=== PATIENT | female | born 1980 | race African-American/Black ===

== ENCOUNTER 2017-03-24 08:54 | Emergency (ER) | payer MEDICAID ==
[~2017-03-24] VITALS: Ht 170.2 cm; Wt 59.0 kg
[2017-03-24] MEDS ORDERED: KETOROLAC 60MG/2ML VIAL IM ONE (09:45)
[2017-03-24] MEDS ORDERED: METOCLOPRAMIDE HCL 5MG TABLET PO ONE (09:45)
[2017-03-24] MEDS ORDERED: IBUPROFEN 600MG TABLET PO ONE (10:00)
[2017-03-24 10:08] VITALS: BP 121/62
== END 2017-03-24 10:09 | disposition home or self-care (01) ==
LOC: ER 10:04
DX: R51 Headache (principal); F17.200 Nicotine dependence, unspecified, uncomplicated
CPT/HCPCS: 99283; J1885; J8597

== ENCOUNTER 2018-05-03 18:57 | Emergency (ER) | payer MEDICAID ==
[~2018-05-03] VITALS: Ht 170.2 cm; Wt 68.0 kg
[2018-05-03] MEDS ORDERED: ACETAMINOPHEN 325MG TABLET ONE (20:40)
[2018-05-03] MEDS ORDERED: KETOROLAC 60MG/2ML VIAL IM ONE (23:30)
[2018-05-03] MEDS ORDERED: AMOXICILLIN/POTASSIUM CLAVULANATE 875/125MG TAB PO ONE (23:30)
[2018-05-03] MEDS ORDERED: HYDROCODONE/ACETAMINOPHEN 5/325MG TABLET PO ONE (23:30)
[2018-05-04 00:30] VITALS: BP 119/64
== END 2018-05-04 00:30 | disposition home or self-care (01) ==
LOC: ER 20:32
DX: K04.7 Periapical abscess without sinus (principal); F17.200 Nicotine dependence, unspecified, uncomplicated
CPT/HCPCS: 81025; 96372; 99283; J1885; Z7610

== ENCOUNTER 2020-09-05 12:34 | Emergency (ER) | payer MEDICAID ==
[~2020-09-05] VITALS: Ht 170.2 cm; Wt 54.0 kg
[2020-09-05 12:35] VITALS: BP 107/72
[2020-09-05] MEDS ORDERED: LORAZEPAM 1MG TABLET PO ONE (14:00)
== END 2020-09-05 14:49 | disposition home or self-care (01) ==
LOC: ER 12:56
DX: F43.0 Acute stress reaction (principal); Z98.890 Other specified postprocedural states
CPT/HCPCS: 93005; 99283

== ENCOUNTER 2021-02-12 11:00 | Emergency (ER) | payer MEDICAID ==
[~2021-02-12] VITALS: Ht 170.2 cm; Wt 68.0 kg
[2021-02-12 11:37] VITALS: BP 121/78
== END 2021-02-12 12:12 | disposition left against medical advice (07) ==
LOC: ER 11:04
DX: F41.1 Generalized anxiety disorder (principal); R06.02 Shortness of breath; F12.10 Cannabis abuse, uncomplicated; F17.210 Nicotine dependence, cigarettes, uncomplicated; Z98.890 Other specified postprocedural states
CPT/HCPCS: 99281

== ENCOUNTER 2022-07-15 07:00 | Emergency (ER) | payer MEDICAID, OTHER ==
[~2022-07-15] VITALS: Ht 170.2 cm; Wt 63.3 kg
[2022-07-15 07:05] VITALS: BP 128/102
[2022-07-15] MEDS ORDERED: TOPUD MT (08:20)
== END 2022-07-15 08:31 | disposition home or self-care (01) ==
LOC: ER 07:00
DX: R51.9 Headache, unspecified (principal); F12.10 Cannabis abuse, uncomplicated; Z98.890 Other specified postprocedural states; Y04.0XXA Assault by unarmed brawl or fight, initial encounter; Y93.89 Activity, other specified; Y92.89 Other specified places as the place of occurrence of the external cause
CPT/HCPCS: 99281

== ENCOUNTER 2023-06-17 14:14 | Emergency (ER) | payer OTHER ==
[~2023-06-17] VITALS: Ht 167.6 cm; Wt 66.0 kg
[~2023-06-17 14:14] MED LIST: TOPUD MT
[2023-06-17 14:17] VITALS: BP 110/60; PULSE 80; RESP 18; TEMP 98.9; O2SAT 98
[2023-06-17] MEDS ORDERED: ONDANSETRON HCL 4MG/2ML INJ IV STA (14:24)
[2023-06-17] MEDS ORDERED: MORPHINE SULFATE 4 MG/ML CPJ (NOT FOR IM USE) IV STA (14:24)
[2023-06-17] MEDS ORDERED: SODIUM CHLORIDE 0.9% 1,000 ML IV ONE (14:30)
== END 2023-06-17 15:01 | disposition left against medical advice (07) ==
LOC: ER 14:21
DX: R10.13 Epigastric pain (principal); Z98.890 Other specified postprocedural states
CPT/HCPCS: 99283; J7030